=== PATIENT | female | born 1995 ===

== ENCOUNTER 2018-04-10 21:48 | Emergency (ER) | payer MEDICAID ==
[2018-04-10 21:48] VITALS: BMI 21.9
[2018-04-10 22:09] VITALS: BP 111/66; PULSE 104; RESP 20; TEMP 98.5; O2SAT 99
--- NOTE | 2018-04-10 22:36 | C.PDOC ---
History Of Present Illness 23 year old female presents to the ED requesting a test. Patient states she took 5 tests at home and they were all positive but she wants to make sure before she makes an appointment with her OBGYN. She reports she is 5 days late on her menses. She denies having any complaints. She denies any vaginal bleeding, vaginal discharge, dysuria, nausea, vomiting, back pain or abdominal pain. Time Seen by Provider: 04/10/18 22:10 Chief Complaint (Nursing): Medical Clearance History Per: Patient History/Exam Limitations: no limitations Onset/Duration Of Symptoms: Days Current Symptoms Are (Timing): Still Present Recent travel outside of the [place]: No Past Medical History Reviewed: Historical Data, Nursing Documentation, Vital Signs Vital Signs: Last Vital Signs Temp 98.5 F 04/10/18 22:07 Pulse 104 H 04/10/18 22:07 Resp 20 04/10/18 22:56 BP 111/66 04/10/18 22:07 Pulse Ox 99 04/10/18 22:49 - Medical History PMH: No Chronic Diseases Surgical History: No Surg Hx Family History: States: No Known Family Hx - Social History Hx Alcohol Use: No Hx Substance Use: No - Immunization History Hx Tetanus Toxoid Vaccination: No Hx Influenza Vaccination: No Hx Pneumococcal Vaccination: No Review Of Systems Except As Marked, All Systems Reviewed And Found Negative. Gastrointestinal: Negative for: Nausea, Vomiting, Abdominal Pain Genitourinary: Negative for: Dysuria, Vaginal Discharge, Vaginal Bleeding Musculoskeletal: Positive for: Back Pain Physical Exam - Physical Exam Appears: Well, Non-toxic, No Acute Distress Skin: Warm, Dry Head: Atraumatic, Normacephalic Eye(s): bilateral: Normal Inspection, EOMI Nose: Normal Oral Mucosa: Moist Neck: Normal ROM, Supple Chest: Symmetrical Cardiovascular: Rhythm Regular Respiratory: Normal Breath Sounds, No Accessory Muscle Use, Other (Speaking full sentences) Gastrointestinal/Abdominal: Soft, No Tenderness, No Guarding, No Rebound Back: No CVA Tenderness, No Vertebral Tenderness Extremity: Normal ROM Neurological/Psych: Oriented x3 Gait: Steady ED Course And Treatment O2 Sat by Pulse Oximetry: 99 (RA) Pulse Ox Interpretation: Normal Progress Note: POC preg: positive. Pt is otherwise asymptomatic and instructed to follow up with her OBGYN in 1-2 days and start vitamins. Disposition - Disposition Disposition: HOME/ ROUTINE Disposition Time: 22:34 Condition: STABLE Additional Instructions: Follow up with the OBGYN in 1-2 days. Return to ER if symptoms persist or worsen. Prescriptions: Multivit/Folic Acid/I [ Plus] 1 tab PO DAILY #30 tab Instructions: Morning Sickness (DC) Forms: [employer] (Estonian) - Clinical Impression Clinical Impression: test positive - PA / KILN [employer] / Resident Statement MD/DO has reviewed & agrees with the documentation as recorded. - Scribe Statement The provider has reviewed the documentation as recorded by the Scribe Risa Nelson All medical record entries made by the Janusz were at my direction and personally dictated by me. I have reviewed the chart and agree that the record accurately reflects my personal performance of the history, physical exam, medical decision making, and the department course for this patient. I have also personally directed, reviewed, and agree with the discharge instructions and disposition.
== END 2018-04-10 22:56 | disposition home or self-care (01) ==
LOC: C.ER 21:48
DX: Z32.01 Encounter for pregnancy test, result positive (principal)

== ENCOUNTER 2018-07-22 12:24 | Emergency (ER) | payer MEDICAID, OTHER ==
[2018-07-22 12:24] VITALS: BMI 21.9
--- NOTE | 2018-07-22 13:19 | C.PDOC ---
History Of Present Illness 23 years old female presents to ED for complaints of lower abdominal pain that began last night. Patient states "I think I am 3 months ." Patient reports has not had any care because she moved from [place] and her insurance is not active yet. Patient states she is here to check on her baby. Patient was seen in March and was positive for . Denies urinary symptoms, vaginal discharge or bleeding, dizziness, syncope, fever, nausea, vomiting or any other complaints. Time Seen by Provider: 07/22/18 12:54 Chief Complaint (Nursing): Abdominal Pain History Per: Patient History/Exam Limitations: no limitations Onset/Duration Of Symptoms: Hrs Current Symptoms Are (Timing): Still Present Location Of Pain/Discomfort: RLQ, LLQ Radiation Of Pain To:: None Associated Symptoms: denies: Fever, Chills, Nausea, Vomiting, Diarrhea, Urinary Symptoms Exacerbating Factors: None Alleviating Factors: None Last Bowel Movement: Today Recent travel outside of the [place]: No Abnormal Vaginal Bleeding: No Past Medical History Reviewed: Historical Data, Nursing Documentation, Vital Signs Vital Signs: Last Vital Signs Temp 97.5 F L 07/22/18 12:30 Pulse 84 07/22/18 12:30 Resp 18 07/22/18 12:30 BP 113/76 07/22/18 12:30 Pulse Ox 100 07/22/18 12:30 - Medical History PMH: No Chronic Diseases Surgical History: No Surg Hx Family History: States: Unknown Family Hx - Social History Hx Alcohol Use: No Hx Substance Use: No - Immunization History Hx Tetanus Toxoid Vaccination: No Hx Influenza Vaccination: No Hx Pneumococcal Vaccination: No Review Of Systems Except As Marked, All Systems Reviewed And Found Negative. Gastrointestinal: Positive for: Abdominal Pain (Lower ) Physical Exam - Physical Exam Appears: Non-toxic, No Acute Distress Skin: Warm, Dry, No Rash Head: Atraumatic, Normacephalic Eye(s): bilateral: Normal Inspection, PERRL, EOMI Oral Mucosa: Moist Neck: Normal ROM, Supple Chest: Symmetrical, No Tenderness Cardiovascular: Rhythm Regular Respiratory: Normal Breath Sounds, No Rales, No Rhonchi, No Wheezing Gastrointestinal/Abdominal: Soft, Tenderness (Mild to palpitation of lower abdomen ), Other (Gravid) Extremity: Bilateral: Atraumatic, Normal Color And Temperature, Normal ROM Pulses: Left Radial: Normal, Right Radial: Normal Neurological/Psych: Oriented x3, Normal Speech Gait: Steady ED Course And Treatment O2 Sat by Pulse Oximetry: 100 (RA) Pulse Ox Interpretation: Normal - CT Scan/US Obstetrics US Other Rad Studies (CT/US): Read By Radiologist, Radiology Report Reviewed CT/US Interpretation: Pelvic ultrasound. HISTORY: . Abdominal pain. COMPARISON: None available. TECHNIQUE: Real-time sonography was performed through the pelvis. FINDINGS: Please note this is a limited study for viability purposes only. Dedicated anatomic survey is recommended at an interval date to better evaluate for anomalies. Intrauterine . Cervix measures 3.9 centimeters. Posterior placental position. Placenta is noted approximately 3 centimeters from the cervical os. Cephalic presentation. heart rate of 135 beats per minute. Mean ultrasound age of approximately 19 weeks and 1 day. Biparietal diameter 4.4 centimeters, head circumference of 16.2 centimeters, abdominal circumference of 13.1 centimeters, femur length 3.1 centimeters. No free fluid in the pelvic cul-de-sac. Bilateral ovaries not well visualized. IMPRESSION: Limited study for viability purposes only. Dedicated anatomic survey is recommended at an interval date for evaluation of possible anomalies. Intrauterine corresponding to a mean ultrasound age of approximately 19 weeks and 1 day with heart rate of 135 beats per minute. Continued interval follow-up is recommended. Medical Decision Making Medical Decision Making: Plan: * Blood work * Urine * Transvaginal US Progress: * Patient refused blood work. * Discussed US with patient. Told that this is a viability US and that she must follow up, have care, and dedicated US for measurements. Also instructed to take vitamins. Disposition Counseled Patient/Family Regarding: Studies Performed, Diagnosis, Need For Followup - Disposition Referrals: [facility] [Outside] [facility] [Outside] [facility] [Outside] Disposition: HOME/ ROUTINE Disposition Time: 16:34 Condition: STABLE Additional Instructions: MAREK ROQUE, thank you for letting us take care of you today. Your provider was Noni Astorga MD and you were treated for ABD PAIN. The emergency medical care you received today was directed at your acute symptoms. If you were prescribed any medication, please fill it and take as directed. It may take several days for your symptoms to resolve. Return to the Emergency Department if your symptoms worsen, do not improve, or if you have any other problems. Please contact your doctor or call one of the physicians/clinics you have been referred to that are listed on the Patient Visit Information form that is included in your discharge packet. Bring any paperwork you were given at discharge with you along with any medications you are taking to your follow up visit. Our treatment cannot replace ongoing medical care by a primary care provider outside of the emergency department. Thank you for allowing the [facility] team to be part of your care today. Instructions: Acute Abdomen (Belly Pain), How to Plan and Prepare for a Healthy Forms: [employer] (Upper Sorbian), General Discharge Instructions - POA Present On Arrival: None - Clinical Impression Clinical Impression: Abdominal pain during - Scribe Statement The provider has reviewed the documentation as recorded by the Scribe Ruthann Arredondo All medical record entries made by the Enriqueibe were at my direction and person ally dictated by me. I have reviewed the chart and agree that the record accurately reflects my personal performance of the history, physical exam, medical decision making, and the department course for this patient. I have also personally directed, reviewed, and agree with the discharge instructions and disposition.
[2018-07-22 13:44] LABS: SQUAMOUS EPITHIAL 13 /hpf (0-5); URINE BILIRUBIN NEGATIVE (NEGATIVE); URINE BLOOD NEGATIVE (NEGATIVE); URINE CLARITY Hazy (Clear); URINE COLOR Yellow (YELLOW); URINE GLUCOSE (UA) NORMAL (Normal); URINE LEUKOCYTE ESTERASE 1+ Leu/uL (Negative); URINE PROTEIN NEGATIVE (NEGATIVE)
--- NOTE | 2018-07-22 16:25 | US ---
Pelvic ultrasound HISTORY: . Abdominal pain. COMPARISON: None available. TECHNIQUE: Real-time sonography was performed through the pelvis. FINDINGS: Please note this is a limited study for viability purposes only. Dedicated anatomic survey is recommended at an interval date to better evaluate for anomalies. Intrauterine . Cervix measures 3.9 centimeters. Posterior placental position. Placenta is noted approximately 3 centimeters from the cervical os. Cephalic presentation. heart rate of 135 beats per minute. Mean ultrasound age of approximately 19 weeks and 1 day. Biparietal diameter 4.4 centimeters, head circumference of 16.2 centimeters, abdominal circumference of 13.1 centimeters, femur length 3.1 centimeters No free fluid in the pelvic cul-de-sac. Bilateral ovaries not well visualized. IMPRESSION: Limited study for viability purposes only. Dedicated anatomic survey is recommended at an interval date for evaluation of possible anomalies. Intrauterine corresponding to a mean ultrasound age of approximately 19 weeks and 1 day with heart rate of 135 beats per minute. Continued interval follow-up is recommended.
[2018-07-22 16:36] VITALS: O2SAT 100
[2018-07-22 16:55] VITALS: BP 101/64; PULSE 89; RESP 16; TEMP 97.5
== END 2018-07-22 17:10 | disposition home or self-care (01) ==
LOC: C.ER 12:24
DX: O26.892 Other specified pregnancy related conditions, second trimester (principal); R10.30 Lower abdominal pain, unspecified; Z3A.19 19 weeks gestation of pregnancy